=== PATIENT | male | born 1975 | race Caucasian/White ===

== ENCOUNTER 2019-06-18 07:28 | Day surgery (SDC) | payer OTHER ==
[~2019-06-18] VITALS: Ht 182.9 cm; Wt 90.7 kg
--- NOTE | ~2019-06-18 | O ---
[facility] [place] [address] OPERATIVE REPORT Name: ANAI TA Room #: 150-4 [facility] M.R.#: [id number] Admission: 06/18/19 Attend Phys: Barney Nguyen MD Discharge: Date of : 71 Report #: [id number] THIS REPORT FOR: //name// CC: Barney Gamboa [place] DATE OF SERVICE: 06/18/2019 PREOPERATIVE AND POSTOPERATIVE DIAGNOSES: Deviated nasal septum with chronic sinusitis. OPERATIVE PROCEDURE: Nasal septoplasty with general by laryngeal mask. DESCRIPTION OF PROCEDURE: The patient was taken to the operating room and placed in supine position. General anesthesia was induced by laryngeal mask. Once adequate general anesthesia was obtained, local nasal anesthesia was induced by submucoperichondrial injection of 1% lidocaine with 1:100,000 epinephrine and topical application of cocaine solution. The patient was then draped in a sterile manner. The patient had nasal septal deviation primarily to the left side with a septal spur along the floor on the right side. A hemitransfixion incision was placed on the left side of the nose and the mucoperichondrium and mucoperiosteum was elevated off the septum. The cartilage was incised in front of the bony cartilaginous junction and a portion of cartilage and bone was removed from the midportion of the septum. There was a septal spur along the floor consisting of hypertrophic cartilage and a fracture of the maxillary crest. The cartilage was removed as a long strip, the maxillary crest was infractured and rongeured. After these maneuvers, the septum sat more in the midline. The hemitransfixion incision was then closed with 4-0 chromic suture and a 4-0 plain mattress sutures placed as well. The patient tolerated the procedure well. Blood loss approximately 5 mL. The patient was then awoken and taken to the recovery room in stable condition for postoperative monitoring. By: [id number] Barney Nguyen MD /nt
[~2019-06-18 07:28] MED LIST: FLONASE 0.05%50 MCG NARES
[2019-06-18 08:55] VITALS: BP 150/99
--- NOTE | 2019-06-18 10:30 | H ---
[facility] [place] [address] HISTORY AND PHYSICAL Name: ANAI TA Room #: 150-4 [facility] M.R.#: [id number] Admission: 06/18/19 Attend Phys: Barney Nguyen MD Discharge: Date of : 71 Report #: [id number] THIS REPORT FOR: //name// CC: FAM unknown Barney Nguyen PREOPERATIVE HISTORY AND PHYSICAL: His procedure is scheduled for the 06/18/2019. The patient has constant congestion and frequent sinus infections. He has been treated with several courses of antibiotics. A CT scan of his sinuses shows a deviated nasal septum, primarily to the left side with a large septal spur along the floor on the right, but it did not show evidence of sinusitis. He continues to have difficulty breathing through his nose with frequent sinus infections. PAST MEDICAL HISTORY: His past medical history is otherwise not significant. MEDICATIONS: He is on no medications on a regular basis. ALLERGIES: He has no known drug allergies. PHYSICAL EXAMINATION: He has a deviated nasal septum, primarily to the left side with a large septal spur along the floor on the right side. He had some mild allergic swelling of the nasal tissues. His oropharynx and oral cavity were clear. IMPRESSION: Deviated nasal septum with allergic rhinitis and frequent sinusitis. PLAN: Nasal septoplasty. <ELECTRONICALLY SIGNED> By: Barney Nguyen MD 06/18/19 [id number] Barney Nguyen MD /farzad
[2019-06-18 11:19] VITALS: BP 150/99
== END 2019-06-18 12:01 | disposition home or self-care (01) ==
LOC: OR 07:28 → TBA 07:28 → OR 10:05
DX: J34.2 Deviated nasal septum (principal); J32.9 Chronic sinusitis, unspecified; Z90.49 Acquired absence of other specified parts of digestive tract; Z98.890 Other specified postprocedural states
CPT/HCPCS: 50010; 50101; 50386; 50398; 56524; 56528; 62110; 62900; 64037; 70005